=== PATIENT | male | born 1930 | race Caucasian/White ===

== ENCOUNTER 2021-03-28 21:15 | Inpatient (IN) | payer OTHER ==
[2021-03-28] MEDS ORDERED: ACETAMINOPHEN 1000 MG/100 ML BAG IVPB ONE (21:55)
[2021-03-28] MEDS ORDERED: ACETAMINOPHEN INJECTION 100 ML IVPB ONE (21:57)
[2021-03-28 22:23] LABS: BASO % 0.4 % (0-2.0); EOS % 0.9 % (0-4.5); HEMATOCRIT 39.5 % (35.4-49); HEMOGLOBIN 13.3 GM/dL (11.7-16.9); LYMPH % 14.1 % (8-40); MCHC 33.7 g/dl (32.0-35.9); MEAN CELL VOLUME 95.2 fl (80-96); MEAN PLT VOLUME 8.3 fl (7.5-11.1); NEUT % 76.6 % (42.8-82.8); PLATELET COUNT 217 10^3/uL (134-434); RBC 4.15 M/mm3 (4.00-5.60); WHITE BLOOD COUNT 8.8 K/mm3 (4.0-10.0)
[2021-03-28 22:30] LABS: INR 1.04 (0.83-1.09)
[2021-03-28 22:42] LABS: CHLORIDE 99 mmol/L (98-107); SODIUM 133 mmol/L (136-145)
[2021-03-28 22:44] LABS: CALCIUM 8.9 mg/dL (8.5-10.1)
[2021-03-28 22:45] LABS: ALBUMIN 3.8 g/dl (3.4-5.0); ANION GAP 9 MMOL/L (8-16); BLOOD UREA NITROGEN 19.8 mg/dL (7-18); CO2 25 mmol/L (21-32); GLUCOSE,RANDOM 152 mg/dL (74-106)
[2021-03-28 22:48] LABS: ACTIVATED PTT 27.2 SECONDS (25.2-36.5); CREATININE 0.6 mg/dL (0.55-1.3); SGOT/AST 21 U/L (15-37); SGPT/ALT 22 U/L (13-61)
[2021-03-28 22:49] LABS: BILIRUBIN,TOTAL 0.3 mg/dL (0.2-1)
[2021-03-28 22:50] LABS: TOT PROT 7.3 g/dl (6.4-8.2)
[2021-03-28 22:51] LABS: ALK PHOS 100 U/L (45-117)
[2021-03-29 00:57] LABS: URINE APPEARANCE CLEAR; URINE BILIRUBIN NEGATIVE (NEGATIVE); URINE COLOR YELLOW; URINE GLUCOSE (UA) NEGATIVE (NEGATIVE); URINE KETONE TRACE (NEGATIVE); URINE LEUK ESTERASE NEGATIVE (NEGATIVE); URINE NITRITE NEGATIVE (NEGATIVE); URINE PROTEIN NEGATIVE (NEGATIVE); URINE UROBILINOGEN 0.2 mg/dL (0.2-1.0)
[2021-03-29] MEDS ORDERED: FOLIC ACID INJECTION - 1 MG, THIAMINE HCL 100 MG, MULTIVIT INJECTION ADULT 10 ML in SOD... IVPB ONE (01:24)
[2021-03-29] MEDS ORDERED: ACETAMINOPHEN INJECTION 100 ML IVPB ONE (04:43)
[2021-03-29] MEDS: ACETAMINOPHEN 1000 MG/100 ML BAG IVPB PRN ×3 (04:56→21:31)
[2021-03-29 06:23] VITALS: BMI 31.6
[2021-03-29] MEDS: amLODIPine BESYLATE 5 MG TABLET (FP) PO SCH ×2 (09:11→11:33)
[2021-03-29] MEDS: hydrOXYzine PAMOATE 25 MG CAPSULE (FP) PO SCH ×2 (09:11→11:33)
[2021-03-29 09:31] LABS: BASO % 0.5 % (0-2.0); EOS % 0.3 % (0-4.5); HEMATOCRIT 34.5 % (35.4-49); HEMOGLOBIN 11.4 GM/dL (11.7-16.9); LYMPH % 15.5 % (8-40); MCH 31.4 pg (25.7-33.7); MEAN CELL VOLUME 95.3 fl (80-96); MEAN PLT VOLUME 8.6 fl (7.5-11.1); MONO % 12.6 % (3.8-10.2); NEUT % 71.1 % (42.8-82.8); PLATELET COUNT 203 10^3/uL (134-434); RBC 3.62 M/mm3 (4.00-5.60); RDW 13.9 % (11.9-15.9); WHITE BLOOD COUNT 7.1 K/mm3 (4.0-10.0)
[2021-03-29 09:55] LABS: BLOOD UREA NITROGEN 16.6 mg/dL (7-18); CALCIUM 8.5 mg/dL (8.5-10.1)
[2021-03-29 09:58] LABS: CREATININE 0.6 mg/dL (0.55-1.3)
[2021-03-29] MEDS ORDERED: HEPARIN NA (PORCINE) 5,000 UNITS/ML 1ML VIAL SQ SCH (10:00)
[2021-03-29] MEDS ORDERED: traMADol HCL 50 MG TABLET PO PRN (15:24)
[2021-03-29] MEDS: THIAMINE HCL 100 MG TABLET (FP) PO SCH (15:39)
[2021-03-29] MEDS: SODIUM CHLORIDE 1,000 ML IV SCH (21:21)
[2021-03-30] MEDS: ACETAMINOPHEN 1000 MG/100 ML BAG IVPB PRN (07:13)
[2021-03-30 08:03] LABS: BASO % 0.5 % (0-2.0); HEMATOCRIT 32.9 % (35.4-49); HEMOGLOBIN 11.1 GM/dL (11.7-16.9); MCH 32.2 pg (25.7-33.7); MCHC 33.6 g/dl (32.0-35.9); MEAN CELL VOLUME 95.7 fl (80-96); MEAN PLT VOLUME 8.3 fl (7.5-11.1); MONO % 15.3 % (3.8-10.2); NEUT % 58.2 % (42.8-82.8); PLATELET COUNT 169 10^3/uL (134-434); RBC 3.44 M/mm3 (4.00-5.60); WHITE BLOOD COUNT 6.3 K/mm3 (4.0-10.0)
[2021-03-30 08:53] LABS: CREATININE 0.6 mg/dL (0.55-1.3)
[2021-03-30 08:54] LABS: TOT PROT 5.9 g/dl (6.4-8.2)
[2021-03-30 08:56] LABS: BILIRUBIN,TOTAL 0.7 mg/dL (0.2-1)
[2021-03-30 08:58] LABS: CALCIUM 8.5 mg/dL (8.5-10.1)
[2021-03-30 08:59] LABS: ALBUMIN 3.1 g/dl (3.4-5.0); BLOOD UREA NITROGEN 12.4 mg/dL (7-18)
[2021-03-30 09:09] LABS: N-TERMINAL BNP 241.9 pg/ml (5-450)
[2021-03-30] MEDS: amLODIPine BESYLATE 5 MG TABLET (FP) PO SCH (09:37)
[2021-03-30] MEDS: hydrOXYzine PAMOATE 25 MG CAPSULE (FP) PO SCH (09:38)
[2021-03-30] MEDS: THIAMINE HCL 100 MG TABLET (FP) PO SCH (09:38)
[2021-03-30] MEDS ORDERED: BUPIVACAINE HCL/PF 0.5% (5MG/ML) 10 ML VIAL ONE ×2 (11:16→12:40)
[2021-03-30] MEDS ORDERED: BUPIVACAINE LIPOSOME/PF (EXPAREL) 266 MG/20 ML VIAL ONE (11:16)
[2021-03-30] MEDS ORDERED: SODIUM CHLORIDE 0.9% P/F 10 ML VIAL IJ ONE (11:17)
[2021-03-30] MEDS ORDERED: morphine SULFATE/PF 1 MG/2 ML (2cc Syringe - QUVA) ONE (12:35)
[2021-03-30] MEDS ORDERED: PROPOFOL 20 ML ONE ×3 (12:35→13:44)
[2021-03-30] MEDS ORDERED: VANCOMYCIN 1,000 MG VIAL (RESTRICTED TO ID ONLY) ONE ×2 (12:47→15:12)
[2021-03-30] MEDS ORDERED: ceFAZolin SODIUM 1 GM VIAL ONE ×2 (12:47→13:56)
[2021-03-30] MEDS ORDERED: MIDAZOLAM HCL 2 MG/2 ML SINGLE DOSE VIAL ONE (12:59)
[2021-03-30] MEDS ORDERED: ceFAZolin SODIUM 1 GM VIAL IVPB ONE (13:30)
[2021-03-30] MEDS ORDERED: ROCURONIUM BROMIDE 100 MG/10 ML VIAL ONE (13:46)
[2021-03-30] MEDS ORDERED: SUCCINYLCHOLINE CHLORIDE 200 MG/10 ML SYRINGE ONE (13:46)
[2021-03-30] MEDS ORDERED: ePHEDrine SULFATE 50 MG/1 ML AMPULE ONE (14:00)
[2021-03-30] MEDS ORDERED: fentaNYL CITRATE 250 MCG/5 ML VIAL ONE (15:28)
[2021-03-30] MEDS ORDERED: PROMETHAZINE HCL 25 MG/1 ML VIAL IVPUSH PRN (16:09)
[2021-03-30] MEDS ORDERED: oxyCODONE HCL 5 MG TABLET PO PRN (16:09)
[2021-03-30] MEDS ORDERED: ONDANSETRON 4 MG/2 ML VIAL IVPUSH PRN (16:09)
[2021-03-30] MEDS ORDERED: HYDROmorphone *PCA* 10MG/50ML DISP.SYRIN PCA SCH (16:15)
[2021-03-30] MEDS ORDERED: HYDROmorphone *PCA* 10MG/50ML DISP.SYRIN ONE (16:26)
[2021-03-30] MEDS ORDERED: HYDROmorphone *PCA* 10MG/50ML DISP.SYRIN PCA ONE (17:00)
[2021-03-30] MEDS: SODIUM CHLORIDE 1,000 ML IV SCH (18:42)
[2021-03-30] MEDS: CEFAZOLIN 2 GM in SODIUM CHLORIDE 100 ML IVPB SCH (21:13)
[2021-03-31] MEDS: CEFAZOLIN 2 GM in SODIUM CHLORIDE 100 ML IVPB SCH (05:26)
[2021-03-31 08:38] LABS: HEMATOCRIT 28.8 % (35.4-49); HEMOGLOBIN 9.5 GM/dL (11.7-16.9); MCH 31.6 pg (25.7-33.7); MCHC 33.1 g/dl (32.0-35.9); MEAN CELL VOLUME 95.5 fl (80-96); MEAN PLT VOLUME 8.4 fl (7.5-11.1); PLATELET COUNT 162 10^3/uL (134-434); RBC 3.01 M/mm3 (4.00-5.60)
[2021-03-31 09:01] LABS: CALCIUM 8.5 mg/dL (8.5-10.1)
[2021-03-31 09:02] LABS: BLOOD UREA NITROGEN 12.5 mg/dL (7-18)
[2021-03-31 09:05] LABS: CREATININE 0.7 mg/dL (0.55-1.3)
[2021-03-31] MEDS: THIAMINE HCL 100 MG TABLET (FP) PO SCH (09:43)
[2021-03-31] MEDS: hydrOXYzine PAMOATE 25 MG CAPSULE (FP) PO SCH (09:43)
[2021-03-31] MEDS: amLODIPine BESYLATE 5 MG TABLET (FP) PO SCH (09:43)
[2021-03-31] MEDS: ENOXAPARIN NA (PORCINE) 40 MG/0.4 ML DISP.SYRIN SQ SCH (13:37)
[2021-03-31] MEDS: ACETAMINOPHEN 1000 MG/100 ML BAG IVPB PRN (18:10)
[2021-04-01] MEDS: ACETAMINOPHEN 1000 MG/100 ML BAG IVPB PRN ×3 (03:05→15:12)
[2021-04-01 10:14] LABS: BASO % 0.4 % (0-2.0); HEMATOCRIT 26.1 % (35.4-49); HEMOGLOBIN 8.7 GM/dL (11.7-16.9); LYMPH % 14.8 % (8-40); MCH 31.8 pg (25.7-33.7); MCHC 33.3 g/dl (32.0-35.9); MEAN CELL VOLUME 95.3 fl (80-96); MEAN PLT VOLUME 8.7 fl (7.5-11.1); MONO % 12.9 % (3.8-10.2); NEUT % 70.9 % (42.8-82.8); PLATELET COUNT 162 10^3/uL (134-434); RBC 2.74 M/mm3 (4.00-5.60); RDW 14.5 % (11.9-15.9); WHITE BLOOD COUNT 9.7 K/mm3 (4.0-10.0)
[2021-04-01] MEDS: hydrOXYzine PAMOATE 25 MG CAPSULE (FP) PO SCH (10:23)
[2021-04-01] MEDS: amLODIPine BESYLATE 5 MG TABLET (FP) PO SCH (10:23)
[2021-04-01] MEDS: ENOXAPARIN NA (PORCINE) 40 MG/0.4 ML DISP.SYRIN SQ SCH (10:23)
[2021-04-01] MEDS: THIAMINE HCL 100 MG TABLET (FP) PO SCH (10:23)
[2021-04-01 10:39] LABS: BLOOD UREA NITROGEN 13.7 mg/dL (7-18)
[2021-04-01 10:42] LABS: CREATININE 0.6 mg/dL (0.55-1.3)
[2021-04-01] MEDS: ACETAMINOPHEN 325 MG TABLET (FP) PO PRN ×2 (17:11→22:37)
[2021-04-01] MEDS: oxyCODONE HCL 5 MG TABLET PO PRN ×2 (17:13→22:38)
[2021-04-02] MEDS: oxyCODONE HCL 5 MG TABLET PO PRN ×3 (06:56→21:42)
[2021-04-02] MEDS: ACETAMINOPHEN 325 MG TABLET (FP) PO PRN ×3 (06:57→21:41)
[2021-04-02 09:45] LABS: BASO % 0.6 % (0-2.0); EOS % 2.9 % (0-4.5); HEMATOCRIT 24.2 % (35.4-49); HEMOGLOBIN 8.1 GM/dL (11.7-16.9); LYMPH % 14.6 % (8-40); MCH 31.9 pg (25.7-33.7); MCHC 33.3 g/dl (32.0-35.9); MEAN CELL VOLUME 95.7 fl (80-96); MEAN PLT VOLUME 8.6 fl (7.5-11.1); MONO % 12.5 % (3.8-10.2); NEUT % 69.4 % (42.8-82.8); PLATELET COUNT 165 10^3/uL (134-434); RBC 2.53 M/mm3 (4.00-5.60); RDW 14.2 % (11.9-15.9)
[2021-04-02] MEDS: amLODIPine BESYLATE 5 MG TABLET (FP) PO SCH (09:53)
[2021-04-02] MEDS: ENOXAPARIN NA (PORCINE) 40 MG/0.4 ML DISP.SYRIN SQ SCH (09:53)
[2021-04-02] MEDS: THIAMINE HCL 100 MG TABLET (FP) PO SCH (09:53)
[2021-04-02] MEDS: hydrOXYzine PAMOATE 25 MG CAPSULE (FP) PO SCH (09:53)
[2021-04-02] MEDS: POLYETHYLENE GLYCOL (HEALTHYLAX) 3350 17 GM PACKET PO PRN (10:01)
[2021-04-03] MEDS: ACETAMINOPHEN 325 MG TABLET (FP) PO PRN ×4 (03:56→22:42)
[2021-04-03] MEDS: oxyCODONE HCL 5 MG TABLET PO PRN ×4 (03:57→22:43)
[2021-04-03] MEDS: hydrOXYzine PAMOATE 25 MG CAPSULE (FP) PO SCH (09:42)
[2021-04-03] MEDS: amLODIPine BESYLATE 5 MG TABLET (FP) PO SCH (09:42)
[2021-04-03] MEDS: THIAMINE HCL 100 MG TABLET (FP) PO SCH (09:42)
[2021-04-03] MEDS: ENOXAPARIN NA (PORCINE) 40 MG/0.4 ML DISP.SYRIN SQ SCH (09:43)
[2021-04-03 13:05] LABS: BASO % 0.6 % (0-2.0); EOS % 3.6 % (0-4.5); HEMATOCRIT 27.3 % (35.4-49); HEMOGLOBIN 9.1 GM/dL (11.7-16.9); MCH 32.1 pg (25.7-33.7); MCHC 33.3 g/dl (32.0-35.9); MEAN CELL VOLUME 96.3 fl (80-96); MEAN PLT VOLUME 8.3 fl (7.5-11.1); MONO % 14.2 % (3.8-10.2); NEUT % 64.6 % (42.8-82.8); PLATELET COUNT 220 10^3/uL (134-434); RBC 2.84 M/mm3 (4.00-5.60); RDW 14.5 % (11.9-15.9)
[2021-04-03 13:25] LABS: CALCIUM 8.6 mg/dL (8.5-10.1)
[2021-04-03 13:27] LABS: BLOOD UREA NITROGEN 13.9 mg/dL (7-18)
[2021-04-03 13:29] LABS: CREATININE 0.6 mg/dL (0.55-1.3)
[2021-04-04] MEDS: oxyCODONE HCL 5 MG TABLET PO PRN ×2 (06:55→13:26)
[2021-04-04] MEDS: ACETAMINOPHEN 325 MG TABLET (FP) PO PRN ×2 (06:55→13:27)
[2021-04-04] MEDS: THIAMINE HCL 100 MG TABLET (FP) PO SCH (09:34)
[2021-04-04] MEDS: ENOXAPARIN NA (PORCINE) 40 MG/0.4 ML DISP.SYRIN SQ SCH (09:34)
[2021-04-04] MEDS: amLODIPine BESYLATE 5 MG TABLET (FP) PO SCH (09:34)
[2021-04-04] MEDS: hydrOXYzine PAMOATE 25 MG CAPSULE (FP) PO SCH (09:34)
[2021-04-04] MEDS: POLYETHYLENE GLYCOL (HEALTHYLAX) 3350 17 GM PACKET PO PRN (09:34)
[2021-04-04] MEDS ORDERED: oxyCODONE HCL 5 MG TABLET PO PRN (17:30)
[2021-04-04] MEDS ORDERED: ACETAMINOPHEN 325 MG TABLET (FP) PO PRN (17:30)
[2021-04-05 08:44] LABS: BASO % 0.9 % (0-2.0); BLOOD UREA NITROGEN 15.4 mg/dL (7-18); CALCIUM 7.5 mg/dL (8.5-10.1); EOS % 3.9 % (0-4.5); HEMATOCRIT 22.9 % (35.4-49); HEMOGLOBIN 7.5 GM/dL (11.7-16.9); LYMPH % 19.3 % (8-40); MCH 31.2 pg (25.7-33.7); MEAN CELL VOLUME 94.6 fl (80-96); MEAN PLT VOLUME 8.1 fl (7.5-11.1); MONO % 14.9 % (3.8-10.2); PLATELET COUNT 245 10^3/uL (134-434); RBC 2.42 M/mm3 (4.00-5.60); RDW 14.4 % (11.9-15.9); WHITE BLOOD COUNT 5.9 K/mm3 (4.0-10.0)
[2021-04-05 08:47] LABS: CREATININE 0.5 mg/dL (0.55-1.3)
[2021-04-05] MEDS: amLODIPine BESYLATE 5 MG TABLET (FP) PO SCH (09:42)
[2021-04-05] MEDS: ENOXAPARIN NA (PORCINE) 40 MG/0.4 ML DISP.SYRIN SQ SCH (09:42)
[2021-04-05] MEDS: THIAMINE HCL 100 MG TABLET (FP) PO SCH (09:42)
[2021-04-05] MEDS: hydrOXYzine PAMOATE 25 MG CAPSULE (FP) PO SCH (09:43)
[2021-04-05] MEDS ORDERED: ACETAMINOPHEN 325 MG TABLET (FP) PO PRN (18:39)
[2021-04-06 08:28] LABS: BASO % 0.6 % (0-2.0); EOS % 4.5 % (0-4.5); HEMATOCRIT 27.4 % (35.4-49); HEMOGLOBIN 9.2 GM/dL (11.7-16.9); LYMPH % 20.6 % (8-40); MCHC 33.5 g/dl (32.0-35.9); MEAN CELL VOLUME 92.4 fl (80-96); MEAN PLT VOLUME 7.7 fl (7.5-11.1); MONO % 15.2 % (3.8-10.2); NEUT % 59.1 % (42.8-82.8); PLATELET COUNT 285 10^3/uL (134-434); RBC 2.96 M/mm3 (4.00-5.60); RDW 14.3 % (11.9-15.9); WHITE BLOOD COUNT 6.4 K/mm3 (4.0-10.0)
[2021-04-06] MEDS ORDERED: MULTIVITAMINS (DAILY MVI) TABLET (FP) PO SCH (10:00)
[2021-04-06] MEDS ORDERED: PANTOPRAZOLE 40 MG TABLET PO SCH (10:00)
[2021-04-06] MEDS: ENOXAPARIN NA (PORCINE) 40 MG/0.4 ML DISP.SYRIN SQ SCH (10:03)
[2021-04-06] MEDS: amLODIPine BESYLATE 5 MG TABLET (FP) PO SCH (10:03)
[2021-04-06] MEDS: hydrOXYzine PAMOATE 25 MG CAPSULE (FP) PO SCH (10:03)
[2021-04-06] MEDS: THIAMINE HCL 100 MG TABLET (FP) PO SCH (10:03)
[2021-04-06 11:54] VITALS: BP 125/69; PULSE 101; TEMP 98.4
[2021-04-06] MEDS ORDERED: FERROUS SO4 325 MG TABLET (FP) PO SCH (17:30)
== END 2021-04-06 12:20 | disposition home health service (06) | DRG 467 ==
LOC: JER 21:15 → JERBED 03-29 00:11 → J6S 03-29 06:22
PROVIDERS: ADMIT Internal Medicine; ATTEND Internal Medicine
PROC: 0SRC0J9 Replacement of Right Knee Joint with Synthetic Substitute, Cemented, Open Approach (ICD-10-PCS; 2021-03-30)
PROC: 0SPC0JZ Removal of Synthetic Substitute from Right Knee Joint, Open Approach (ICD-10-PCS; principal; 2021-03-30 13:45)
DX: S72.341A Displaced spiral fracture of shaft of right femur, initial encounter for closed fracture (principal); M97.11XA Periprosthetic fracture around internal prosthetic right knee joint, initial encounter; E78.5 Hyperlipidemia, unspecified; R93.89 Abnormal findings on diagnostic imaging of other specified body structures; M19.90 Unspecified osteoarthritis, unspecified site; L40.9 Psoriasis, unspecified; K57.90 Diverticulosis of intestine, part unspecified, without perforation or abscess without bleeding; N28.89 Other specified disorders of kidney and ureter; M25.461 Effusion, right knee; F10.220 Alcohol dependence with intoxication, uncomplicated; I10 Essential (primary) hypertension; W06.XXXA Fall from bed, initial encounter; Y92.098 Other place in other non-institutional residence as the place of occurrence of the external cause; Z96.649 Presence of unspecified artificial hip joint
CPT/HCPCS: 36415; 36430; 70450-TC; 71045-TC-FY; 72125-TC; 72170-TC-FY; 73560-TC-RT-FY; 73562-TC-RT-FY; 73706-TC-RT; 74150-TC; 76775-TC; 80048; 80053; 80307; 81003; 82550; 82553; 82962; 83036; 83735; 83880; 84443; 84484; 85025; 85027; 85610; 85730; 86850; 86900; 86901; 86922; 87086; 88304-TC; 88311-TC; 93005; 93010; 93306-TC; 94760; 97162-GP; 99285-25; C9803; P9058; Q9967; U0003; U0005